=== PATIENT | male | born 1985 | race Caucasian/White ===

== ENCOUNTER 2018-12-26 17:45 | Emergency (ER) | payer MEDICAID, OTHER ==
[~2018-12-26] VITALS: Ht 177.8 cm; Wt 99.1 kg
[2018-12-26] MEDS ORDERED: LIDOCAINE/PF 1% 5 ML VIAL INJ ONE (19:00)
[2018-12-26] MEDS ORDERED: BACITRACIN 0.9 GM PACKET OINTMENT TP ONE (19:00)
[2018-12-26 19:30] VITALS: BP 128/82
== END 2018-12-26 19:35 | disposition home or self-care (01) ==
LOC: EMS 17:47
DX: S61.411A Laceration without foreign body of right hand, initial encounter (principal); W26.0XXA Contact with knife, initial encounter; Y93.89 Activity, other specified; Y92.89 Other specified places as the place of occurrence of the external cause; Y99.8 Other external cause status
CPT/HCPCS: 12002; 99283; J2001